=== PATIENT | male | born 1935 | race Caucasian/White ===

== ENCOUNTER 2021-06-15 20:13 | Emergency (ER) | payer MEDICARE, OTHER ==
[~2021-06-15] VITALS: Ht 188 cm; Wt 93.0 kg
[2021-06-15] MEDS ORDERED: ACETAMINOPHEN ES 500 MG TABLET PO ONE (21:00)
[2021-06-15] MEDS ORDERED: ACETAMINOPHEN ES 500 MG TABLET ONE (22:05)
[2021-06-15 22:12] LABS: HEMATOCRIT 34.2 % (36.7-47.1); MEAN CORPUSCULAR HEMOGLOBIN 35.1 uug (23.8-33.4); PLATELET COUNT (AUTO) 253 K/uL (152-348)
[2021-06-15 22:20] LABS: CARBON DIOXIDE 29 mmol/L (21-32); CHLORIDE 104 mmol/L (98-107); CREATININE 1.4 mg/dL (0.6-1.3); GLUCOSE 106 mg/dL (74-106); POTASSIUM 4.2 mmol/L (3.5-5.1); UREA NITROGEN, BLOOD 21 mg/dL (7-18)
[2021-06-15 22:23] LABS: ETHANOL < 3 MG/DL (0-0)
[2021-06-15 22:26] LABS: ALANINE AMINOTRANSFERASE 27 U/L (16-63); ALKALINE PHOSPHATASE 76 U/L (50-136); ASPARTATE AMINOTRANSFERASE 18 U/L (15-37); BILIRUBIN,DIRECT 0.2 mg/dL (0.0-0.2); BILIRUBIN,TOTAL 0.9 mg/dL (0.2-1.0); TOTAL PROTEIN, SERUM 7.8 g/dL (6.4-8.2)
--- NOTE | 2021-06-15 22:38 | NUR ---
Patient is resting comfortably in bed with eyes closed, no acute distress noted.
[2021-06-15] MEDS ORDERED: IV NORMAL SALINE 1000 ML BAG IV ONE (22:45)
[2021-06-15 23:03] LABS: MAGNESIUM 1.9 mg/dL (1.8-2.4); PHOSPHOROUS 2.5 mg/dL (2.5-4.9)
[2021-06-15 23:13] LABS: THYROID STIMULATING HORMONE 4.856 mIU/mL (0.358-3.740)
[2021-06-16 00:04] LABS: *BILIRUBIN,URIN NEGATIVE (NEGATIVE); *CLARITY,URINE CLEAR (CLEAR); *KETONES,URINE NEGATIVE (NEGATIVE); *UROBILINOGEN,URINE 0.2 E.U./dl (NORMAL); LEUKOCYTE ESTERASE ,URINE NEGATIVE (NEGATIVE); NITRITE, URINE NEGATIVE (NEGATIVE); PH,URINE 5.5 (5.0-8.0); UGLUCOSE NEGATIVE (NEGATIVE)
[2021-06-16 00:05] LABS: *BLOOD, URINE TRACE (NEGATIVE); *COLOR,URINE STRAW (YELLOW)
[2021-06-16 00:10] LABS: BACTERIA,URINE NONE SEEN /HPF (NONE SEEN); RBC,URINE 0-3 /HPF (0-3); SQUAMOUS EPITHELIAL CELL,UR FEW /HPF (NONE SEEN); WBC,URINE 0-3 /HPF (0-3)
[2021-06-16] MEDS ORDERED: ONDANSETRON 4 MG/2 ML VIAL IV ONE (00:30)
[2021-06-16] MEDS ORDERED: TDAP DIPH,PERTUSS,TET VAC/PF 0.5 ML DISP.SYRIN IM ONE ×3 (00:30→01:09)
[2021-06-16] MEDS ORDERED: HYDROMORPHONE 1 MG/1 ML DISP.SYRIN IV ONE (00:30)
[2021-06-16] MEDS ORDERED: HYDR-4209 PO (00:32)
[2021-06-16] MEDS ORDERED: IBUP-1957 PO (00:32)
--- NOTE | 2021-06-16 00:38 | NUR ---
SUKHDEV MARCUS called to check up on the patient. 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
[2021-06-16] MEDS ORDERED: KETOROLAC TROMETHAMINE 30 MG INJ IVP ONE (00:45)
[2021-06-16] MEDS ORDERED: ONDANSETRON 4 MG/2 ML VIAL ONE (00:48)
[2021-06-16] MEDS ORDERED: HYDROMORPHONE 1 MG/1 ML DISP.SYRIN ONE (00:48)
[2021-06-16] MEDS ORDERED: KETOROLAC TROMETHAMINE 30 MG INJ ONE (00:58)
--- NOTE | 2021-06-16 01:25 | NUR ---
Patient refused to take sling. Explained to patient the purpose of sling.
--- NOTE | 2021-06-16 01:39 | NUR ---
Patient discharged to home in stable condition with friend taking patientg home. Written and verbal after care instructions given. Patient verbalizes understanding of instructions. Stressed follow up or return to ER for worsening s/s.
[2021-06-16 01:40] VITALS: BP 133/78
== END 2021-06-16 01:40 | disposition home or self-care (01) ==
LOC: ER 20:17
DX: S43.401A Unspecified sprain of right shoulder joint, initial encounter (principal); S83.91XA Sprain of unspecified site of right knee, initial encounter; S53.401A Unspecified sprain of right elbow, initial encounter; S80.211A Abrasion, right knee, initial encounter; W01.0XXA Fall on same level from slipping, tripping and stumbling without subsequent striking against object, initial encounter; Y93.89 Activity, other specified; Y92.89 Other specified places as the place of occurrence of the external cause; E03.9 Hypothyroidism, unspecified; D72.829 Elevated white blood cell count, unspecified; N17.9 Acute kidney failure, unspecified; I45.2 Bifascicular block
CPT/HCPCS: 36415; 70450; 71101; 73030; 73080; 73564; 80048; 80076; 80320; 81001; 83735; 84100; 84443; 84484; 85025; 85730; 90471; 90715; 93005; 96374; 99285; J1885; 70030-TC; A4663; A9150; G0480; J1170; J2405; J7030